=== PATIENT | male | born 1975 | race Caucasian/White ===

== ENCOUNTER 2016-06-22 08:06 | Emergency (ER) | payer OTHER ==
--- NOTE | ~2016-06-22 | ENPV ---
Vascular Lower Extremities DVT Study Procedure Demographics Patient Name RAQUEL LAI Date of Study 06/22/2016 Patient Number [id number] Gender Male Date of 1975 Age 41 Visit Number [id number] Height Accession Number [id number] Weight Room Number BSA BMI Referring Interpreting Cipriano Badillo MD Physician Physician Physician Ordering Physician Serina Cardoza MD Breeding Manager Emergency Medicine Nurse Practitioner Khalif Gordon Conclusions Summary No evidence of deep vein thrombosis or superficial thrombophlebitis in the right lower extremity . Procedure Type of Study: Veins:Lower Extremities DVT Study, Lower Extremity Right. Indications for Study:Pain in Limb. Patient Status:STAT. Study Location:ER. Technical Quality:Adequate visualization. - Preliminary reported to:Dr. Smalls. Velocities are measured in cm/s ; Diameters are measured in cm Right Lower Extremities DVT Study Measurements Right 2D and Doppler Measurements + + + + +------+------+ + !Location !Visualized!Compressibility!Thrombosis!Signal!Reflux!Reflux ! ! ! ! ! ! ! !(sec) ! + + + + +------+------+ + !GSV Thigh !Yes !Yes !None !Phasic!No ! ! + + + + +------+------+ + !Common !Yes !Yes !None !Phasic!No ! ! !Femoral ! ! ! ! ! ! ! + + + + +------+------+ + !Prox !Yes !Yes !None !Phasic!No ! ! !Femoral ! ! ! ! ! ! ! + + + + +------+------+ + !Mid Femoral!Yes !Yes !None !Phasic!No ! ! + + + + +------+------+ + !Dist !Yes !Yes !None !Phasic!No ! ! !Femoral ! ! ! ! ! ! ! + + + + +------+------+ + !Popliteal !Yes !Yes !None !Phasic!No ! ! + + + + +------+------+ + !Gastroc !Yes !Yes !None !Phasic!No ! ! + + + + +------+------+ + !PTV !Yes !Yes !None !Phasic!No ! ! + + + + +------+------+ + !Peroneal !Yes !Yes !None !Phasic!No ! ! + + + + +------+------+ + Left Lower Extremities DVT Study Measurements Left 2D and Doppler Measurements + + + + +------+------+ + !Location !Visualized!Compressibility!Thrombosis!Signal!Reflux!Reflux ! ! ! ! ! ! ! !(sec) ! + + + + +------+------+ + !Common !Yes !Yes !None !Phasic!No ! ! !Femoral ! ! ! ! ! ! ! + + + + +------+------+ + Signature dtt: NAZARIO HILL dtd: 06/22/16 0908 Physician Self Edit
--- NOTE | ~2016-06-22 | ER ---
PATIENT'S NAME: RAQUEL LAI [facility] AGE: 41 Y [address] ROOM: [place] [address] LOCATION: [facility] ADMIT DATE: 06/22/2016 ER/Outpatient Report DISCHARGE DATE: 06/22/2016 FAMILY PHYSICIAN: PHYSICIAN, NO ATTENDING PHYSICIAN: Sony Smalls CHIEF COMPLAINT: Right-sided sensory changes with pain in the right calf. HISTORY OF PRESENT ILLNESS: The patient states that for the last 5-6 days he has had unusual sensations on the right side in his extremities and then Monday developed some right-sided facial numbness. He was seen by a primary care physician in [place] where some blood work and an MRI was obtained. As far as the patient knows everything was "normal," and he has been having persistent symptoms despite overall improvement. He states that he is seeking a second opinion. He denies any other new complaints. He states he is otherwise healthy. Does not take any medicines and has no allergies. The patient denies any visual changes, difficulty with speaking or swallowing. Has had no difficulties with coordination or strength, but only the sensory changes with some pain in his right side. He denies any left-sided symptoms at all. PAST MEDICAL HISTORY: Documented on the record and reviewed by me. SOCIAL HISTORY: Documented on the record and reviewed by me. MEDICATIONS: Documented on the record and reviewed by me. ALLERGIES: DOCUMENTED ON THE RECORD AND REVIEWED BY ME. REVIEW OF SYSTEMS: All systems reviewed and negative except as noted in the HPI. PHYSICAL EXAMINATION: VITAL SIGNS: Blood pressure 152/96, pulse 72, respiratory rate is 18, temperature 97.4, SpO2 is 97% on room air. Pain is 0/10. GENERAL: Age-appropriate male, in no obvious pain or distress, sitting comfortably on exam table. NEUROLOGIC: The patient is awake and alert. GCS is 15. There are no detectable sensory deficits to light touch. Strength is symmetric in all PATIENT'S NAME: RAQUEL LAI [facility] AGE: 41 Y [address] ROOM: [place], [place] [address] LOCATION: [facility] ADMIT DATE: 06/22/2016 ER/Outpatient Report DISCHARGE DATE: 06/22/2016 FAMILY PHYSICIAN: PHYSICIAN, NO ATTENDING PHYSICIAN: Sony Smalls major motor groups throughout all extremities. There is no pronator drift. No difficulty with rapid alternating movements and fine motor movements of all extremities. HEENT: Normocephalic, atraumatic. Eyes are PERRL. Oropharynx is clear. NECK: Supple. Trachea is midline. CHEST: Heart is regular rate and rhythm with no murmurs. LUNGS: Clear to auscultation bilaterally. No rhonchi, wheezes, or rales. ABDOMEN: Soft, nontender, and nondistended. No rebound or guarding. BACK: Nontender to palpation throughout. No CVA tenderness. EXTREMITIES: Warm and well perfused. There is some tenderness to palpation of the right calf. Not particularly enlarged without edema. SKIN: Warm, dry, and intact. LABORATORY DATA AND X-RAYS: Labs and x-rays right lower extremity duplex ultrasound without DVT. Labs: CBC is notable for a slightly decreased white blood cell count 3.5, hemoglobin A1c is 4.5 CMS is without abnormality. IMPRESSION: Right-sided paresthesias. EMERGENCY DEPARTMENT COURSE: The patient was seen and evaluated as above. With already having a reportedly normal MRI, I do not think stroke is a possibility today and there are no objective findings of stroke. His exam is very reassuring overall. With the pain in the right leg being persistent, I did obtain a duplex ultrasound which was negative. He does not have diabetes making diabetic neuropathy extremely unlikely. The unilateral nature of his symptoms is unusual. I will refer him to primary care office locally for further evaluation and treatment. 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 He does need to have his white count checked in a few weeks. All questions were answered. The patient was discharged in good condition. MD JORDAN KING/harley /[id number] d: 06/22/16 1423 t: 07/05/16 1721, OUTPATIENT REPORT
[2016-06-22 08:57] LABS: BASOPHIL % 0.6 %; EOSINOPHIL # 0.1 K/uL (0.0-0.5); EOSINOPHIL % 1.4 %; HEMATOCRIT 44.6 % (37.0-53.0); HEMOGLOBIN 15.6 g/dL (12.0-17.0); IMMATURE GRANULOCYTE % 0.3 %; LYMPHOCYTE # 1.2 K/uL (0.8-4.0); LYMPHOCYTE % 35.4 %; MCH 31.3 pg (27.0-34.0); MCV 89.4 fl (83.0-98.0); MONOCYTE # 0.3 K/uL (0.0-1.0); MONOCYTE % 9.8 %; MPV 10.1 fl (9.4-12.4); NEUTROPHIL # (ANC) 1.8 K/uL (1.4-9.0); NEUTROPHIL % 52.5 %; NRBC % 0 /100WBC (0-0.00); PLATELET COUNT 131 K/uL (150-450); RBC 4.99 M/uL (4.00-6.00); RDW-CV 12.2 % (11.9-14.6); WBC 3.5 K/uL (4.0-11.0)
[2016-06-22 09:13] LABS: ALBUMIN 3.9 gm/dL (3.5-5.0); ALK PHOS 99 IU/L (33-138); ALT 41 IU/L (12-78); ANION GAP 10.4 (10.0-19.0); AST 21 IU/L (10-40); BLOOD UREA NITROGEN 15 mg/dL (6-24); CALCIUM 8.7 mg/dL (8.5-10.5); CHLORIDE 109 mMol/L (96-110); CO2 28 mMol/L (22-32); CREATININE 0.8 mg/dL (0.6-1.3); ESTIMATED GFR (MDRD EQUATION) > 60; POTASSIUM 4.4 mMol/L (3.7-5.1); SODIUM 143 mMol/L (135-145); TOTAL BILIRUBIN 0.6 mg/dL (0.0-1.5); TOTAL PROTEIN 6.7 g/dL (6.0-8.4)
== END 2016-06-22 09:32 | disposition disaster alternative care site (69) ==
LOC: GMED 08:06
PROVIDERS: Emergency Medicine
DX: R20.2 Paresthesia of skin (principal); Z79.899 Other long term (current) drug therapy